=== PATIENT | female | born 1950 | race Caucasian/White ===

== ENCOUNTER → 2024-05-07 | Outpatient (CLI) | payer MEDICARE, SELFPAY ==
--- NOTE | 2024-05-07 | XR_ITS ---
Examination: Screening digital mammography, bilateral Computer aided detection 3-D breast Tomosynthesis, bilateral Date and time of exam: May 07, 2024 1106 hours Compared to mammograms dating to the 2017 Indication: Screening Technique: Nonmagnified MLO, CC views of the breasts to been obtained, reconstructed from 3-D Tomosynthesis images. R2 computer aided detection program utilized for evaluation of suspicious masses and/or abnormal calcifications. 3-D Tomosynthesis images obtained. Findings: The breasts are heterogeneously dense, which may obscure small masses The breast architecture is nodular Numerous bilateral calcifications are again depicted Impression: BI-RADS Category 0 incomplete: Need additional imaging evaluation The breasts are heterogeneously dense and nodular, recommend bilateral breast sonography follow-up
--- NOTE | 2024-05-07 10:17 | XR_ITS ---
Examination: Breast ultrasound complete, bilateral Date and time of exam: May 07, 2024 1028 hours INDICATIONS: Palpable lumps both breasts noticed beginning 30 years ago, history stereotactic breast biopsy May 08, 2019 negative history 2 right breast lumpectomy is 1984, negative, left breast sonogram October 16, 2023 3:00 nodule 21 mm 10:00 nodule 9 mm 11:00 nodule 10 mm Technique: Real-time grayscale ultrasonographic imaging bilateral breasts, including all 4 quadrants as well as nipple retroareolar and axillary regions. Findings: Sonographic images right breast 3:00 nodule 9 x 5 mm lobular margins 10:00 nodule lobular margins 11 x 13 mm Sonographic images left breast Benign cyst 10:00 oval mass partially indistinct margins 8 x 11 mm 11:00 oval mass partially indistinct margins 9 x 8 mm IMPRESSION: BI-RADS Category 4: Suspicious for malignancy Suspicious nodules left breast 10:00 11:00 position, biopsy of both nodules is needed to exclude breast carcinoma These nodules are amenable to ultrasound-guided breast biopsy for diagnosis
[2024-05-07 11:52] LABS: Collection Type, Urine Clean Catch
[2024-05-07 12:19] LABS: Basophils % (Auto) 1 % (0-2.5); Eosinophils # (Auto) 0.3 Thou/mm3 (0.0-0.5); Eosinophils % (Auto) 3 % (0-10); Hematocrit 40.7 % (36.0-46.0); Hemoglobin 14.1 g/dL (12.0-16.0); Immature Granulocytes % (Auto) 0 % (0-0); Immature Granulocytes Auto 0.03 Thou/mm3 (0.00-0.00); Lymphocytes # (Auto) 2.8 Thou/mm3 (1.0-4.8); Lymphocytes % (Auto) 31 % (10-50); Mean Corpuscular HGB Conc 34.6 g/dl (31.0-37.0); Mean Corpuscular Hemoglobin 31.7 pg (25.0-35.0); Mean Corpuscular Volume 92 fL (80-100); Monocytes # (Auto) 0.6 Thou/mm3 (0.0-0.8); Monocytes % (Auto) 7 % (0-12); Neutrophils # (Auto) 5.1 Thou/mm3 (1.8-7.7); Neutrophils % (Auto) 58 % (37-80); Nucleated Red Blood Cell % 0 /100 WBC (0); Platelet Count 259 Thou/mm3 (140-440); RDW Standard Deviation 44.9 fL (36.4-46.3); Red Blood Count 4.45 Miln/mm3 (4.00-5.20); White Blood Count 8.9 Thou/mm3 (3.6-11.0)
[2024-05-07 12:31] LABS: Glucose Estimated Average 120 mg/dL (80-131); Hemoglobin A1C 5.8 % Hgb (4.8-6.0)
[2024-05-07 12:48] LABS: Alanine Aminotransferase 20 U/L (10-49); Albumin, Serum 4.3 gm/dL (3.4-4.8); Alkaline Phosphatase 103 U/L (46-116); Anion Gap 8 (7-16); Aspartate Amino Transferase 20 U/L (0-34); BUN/Creatinine Ratio 20 Ratio (12-20); Bilirubin,Total 0.7 mg/dL (0.3-1.2); Blood Urea Nitrogen 14 mg/dL (9-23); Carbon Dioxide 28.8 mMol/L (20.0-31.0); Cardiac Risk Estimate 2.2 RATIO (3.7-5.6); Chloride 98 mMol/L (98-107); Cholesterol 155 mg/dL (132-200); Creatinine (Component) 0.7 mg/dL (0.6-1.3); Globulin 2.2 gm/dL (2.3-3.5); Glucose 124 mg/dL (74-106); HDL Cholesterol 69 mg/dL (40-60); LDL Cholesterol,Calculated 66 mg/dL (0-130); Osmolality,Calculated 271 (275-295); Potassium 4.7 mMol/L (3.4-5.1); Sodium 135 mMol/L (136-145); Thyroid Stimulating Hormone 1.06 uIU/mL (0.55-4.78); Total Protein 6.5 gm/dL (5.7-8.2); Triglycerides 100 mg/dL (30-150); Uric Acid 6.1 mg/dL (3.1-7.8); eGFR > 60 See Note
[2024-05-07 12:51] LABS: Bacteria,Urine Rare; Bilirubin,Urine Negative (Negative); Blood,Urine Negative (Negative); Clarity,Urine Clear (Clear/Hazy); Color,Urine Lt-Yellow (Lt Yel-Yel); Glucose, Urine Negative (Negative); Ketones,Urine Negative (Negative); Leukocyte Esterase,Urine Positive (Negative); Nitrite,Urine Negative (Negative); PH,Urine 7.5 (5.0-7.0); Protein,Urine Negative (Neg - Trace); RBC,Urine 5 /hpf (0-3); Specific Gravity,Urine 1.017 (1.001-1.035); Squamous Epithelial Cell,Urine 1 /hpf (0-5); Urobilinogen,Urine Negative mg/dL (0.0-1.0); WBC,Urine 5 /hpf (0-5)
== END | disposition home or self-care (01) ==
LOC: CDIM 10:06 → COPL 11:17
PROVIDERS: PCP Internal Medicine; Referring Provider Internal Medicine; Visit Provider Internal Medicine
DX: Z12.31 Encounter for screening mammogram for malignant neoplasm of breast (principal); N63.22 Unspecified lump in the left breast, upper inner quadrant; N63.15 Unspecified lump in the right breast, overlapping quadrants; N63.11 Unspecified lump in the right breast, upper outer quadrant; R92.343 Mammographic extreme density, bilateral breasts; I10 Essential (primary) hypertension; E78.5 Hyperlipidemia, unspecified
CPT/HCPCS: 36415; 76641; 77063; 77067; 80053; 80061; 81001; 83036; 84443; 84550; 85025

== ENCOUNTER → 2024-07-22 | Outpatient (CLI) | payer MEDICARE, SELFPAY ==
[2024-07-21 12:30] LABS: Basophils % (Auto) 0 % (0-2.5); Eosinophils # (Auto) 0.1 Thou/mm3 (0.0-0.5); Eosinophils % (Auto) 1 % (0-10); Hematocrit 43.4 % (36.0-46.0); Immature Granulocytes % (Auto) 0 % (0-0); Immature Granulocytes Auto 0.04 Thou/mm3 (0.00-0.00); Lymphocytes # (Auto) 2.4 Thou/mm3 (1.0-4.8); Lymphocytes % (Auto) 26 % (10-50); Mean Corpuscular HGB Conc 34.6 g/dl (31.0-37.0); Mean Corpuscular Hemoglobin 31.9 pg (25.0-35.0); Mean Corpuscular Volume 92 fL (80-100); Monocytes # (Auto) 0.7 Thou/mm3 (0.0-0.8); Monocytes % (Auto) 8 % (0-12); Neutrophils # (Auto) 5.7 Thou/mm3 (1.8-7.7); Neutrophils % (Auto) 63 % (37-80); Nucleated Red Blood Cell % 0 /100 WBC (0); Platelet Count 273 Thou/mm3 (140-440); RDW Standard Deviation 45.1 fL (36.4-46.3); White Blood Count 9.1 Thou/mm3 (3.6-11.0)
[2024-07-21 12:35] LABS: INR 0.9 (0.9-1.3); Partial Thromboplastin Time 27.3 Seconds (22.0-36.0); Prothrombin Time 10.3 Seconds (9.0-12.2)
--- NOTE | 2024-07-22 | XR_ITS ---
Examinations: Ultrasound-guided percutaneous breast biopsy, left breast 11:00 nodule Left breast sonography complete INDICATIONS: BI-RADS 4 suspicious nodule 11:00 position left breast on sonogram May 07, 2024. Exam date and time: July 22, 2024 0933 hours. Informed consent provided. Technique: A timeout was completed verifying correct patient, procedure, site, positioning, and special equipment if applicable Informed consent provided. The patient was placed in a supine position for the breast biopsy. Sonographic images of the breast were performed for localization of the suspicious nodule The patient's breast was prepped and draped in sterile fashion. Maximum sterile barrier technique, hand hygiene, ultrasound sterile technique 1% lidocaine was used to anesthetize the skin and breast adjacent to the suspicious nodule. Utilizing ultrasonographic guidance, 8 core biopsies were obtained of the suspicious nodule utilizing an 18-gauge BioPince needle. The specimens appears satisfactory. US guided breast biopsy marker placement. Estimated blood loss 3 cc. The patient tolerated the procedure well and there were no complications. Impression: Successful ultrasound-guided percutaneous breast biopsy, left breast 11:00 nodule. Ultrasound guided breast biopsy marker placement.
--- NOTE | 2024-07-22 08:30 | XR_ITS ---
Examinations: Ultrasound-guided percutaneous breast biopsy, left breast 10:00 nodule Left breast sonography limited INDICATIONS: BI-RADS 4 suspicious nodule 10:00 position left breast on left breast sonogram May 07, 2024. Exam date and time: July 22, 2024 0930 hours. Informed consent provided. Technique: A timeout was completed verifying correct patient, procedure, site, positioning, and special equipment if applicable Informed consent provided. The patient was placed in a supine position for the breast biopsy. Sonographic images of the breast were performed for localization of the suspicious nodule The patient's breast was prepped and draped in sterile fashion. Maximum sterile barrier technique, hand hygiene, ultrasound sterile technique 1% lidocaine was used to anesthetize the skin and breast adjacent to the suspicious nodule. Utilizing ultrasonographic guidance, 8 core biopsies were obtained of the suspicious nodule utilizing an 18-gauge BioPince needle. The specimens appears satisfactory. US guided breast biopsy marker placement. Estimated blood loss 3 cc. The patient tolerated the procedure well and there were no complications. Impression: Successful ultrasound-guided percutaneous breast biopsy, left breast 10:00 nodule. Ultrasound guided breast biopsy marker placement.
== END | disposition home or self-care (01) ==
LOC: SDIM 08:43 → SIRX 09:05
PROVIDERS: Radiology Diagnostic Radiology; PCP Internal Medicine; Referring Provider Internal Medicine; Visit Provider Internal Medicine
DX: D05.12 Intraductal carcinoma in situ of left breast (principal); D24.2 Benign neoplasm of left breast; Z01.812 Encounter for preprocedural laboratory examination
CPT/HCPCS: 19083; 19084; 36415; 85025; 85610; 85730; A4648

== ENCOUNTER 2024-08-26 10:24 | Outpatient (RCR) | payer MEDICARE, SELFPAY ==
--- NOTE | 2024-08-26 11:52 | CTCCONSULT_ITS ---
[facility] [address] [place], [place] [address] Consultation Note Date: 08/26/2024 MR#: [id number] Name: CITLALY HEADLEY : 1950 Dx: D48.62 Neoplasm of uncertain behavior of left breast Attending physician. Bhanu Bazan MD Reason for consultation. Intraductal papilloma left breast. History of Present Illness: Patient reportedly has had benign lesions from the right breast removed in the past during the . Had bilateral ultrasound March 10, 2023 probably benign findings but recommended repeat follow-ups. Patient felt the lump in her left breast with suspicious nodule at 10 and 11:00 on ultrasound of 05/07/2024. Underwent ultrasound-guided biopsy 07/22/2024 at 10:00 intraductal papilloma largest focus 0.8 cm. According to comment no cytologic atypia noted. Minimal invasion cannot be ruled out. Patient reportedly felt palpable lump but there was no bloody discharge. Patient now referred to the cancer treatment center. Past Medical History: History of benign biopsies right breast.; High blood pressure history rubella tonsillitis measles chickenpox seasonal allergies. Meds. Hydrochlorothiazide omeprazole Jacklyn losartan metoprolol pravastatin allopurinol diclofenac meclizine Allergies none to meds Social History: Patient originally from [place] has never been lives with her second denies smoking drinks socially family history father had prostate cancer; retired from department of [employer] felt the less Review of Systems: [place] the left breast lump denies bleeding from the nipple Physical Exam: General: Adequate nourished appearing lady no acute distress HEENT: Atraumatic no cephalic extraocular is intact no oral lesion no cervical or supraclavicular adenopathy CV: Breast not examined chest clear to auscultation heart regular rate and rhythm ABD: Soft no guarding or tenderness EXT: No cyanosis clubbing edema Assessment: Intraductal papilloma left breast, biopsy only performed. No cytological atypia noted however minimal invasion could not be ruled out according to pathologist Nicholas of . Plan: Excisional biopsy, lumpectomy with clear margins, would be beneficial to rule out any atypia or DCIS or even possibly invasive cancer may be present. That is the current up-to-date recommendations in most cases. Patient states that she wants to think about it and will call me in a few days about her surgical referral. At any rate she made appointment to see me again in 3 months time. Thank you very much for allowing me to evaluate this very nice patient. Cc: Bhanu Bazan MD Electronically signed by: Jesús Zhang MD, DABR 08/26/2024 11:50 AM
== END 2024-09-01 23:59 | disposition home or self-care (01) ==
LOC: SCTC 10:24
PROVIDERS: PCP Internal Medicine; Referring Provider Internal Medicine; Visit Provider Radiology Therapeutic Radiology
DX: D24.2 Benign neoplasm of left breast (principal)
CPT/HCPCS: 99213; G0463